=== PATIENT | female | born 1960 | race Caucasian/White ===

== ENCOUNTER 2019-02-16 13:46 | Emergency (ER) | payer MEDICAID ==
[~2019-02-16] VITALS: Ht 149.9 cm; Wt 81.6 kg
[2019-02-16 13:57] VITALS: BP_SYST 175
[2019-02-16] MEDS ORDERED: KETOROLAC TROMETHAMINE 60 MG/2 ML VIAL IM ONE (15:30)
[2019-02-16 15:53] VITALS: BP_SYST 175
== END 2019-02-16 15:53 | disposition home or self-care (01) ==
LOC: SED 13:46
DX: M25.562 Pain in left knee (principal); R03.0 Elevated blood-pressure reading, without diagnosis of hypertension; F17.210 Nicotine dependence, cigarettes, uncomplicated
CPT/HCPCS: 73564; 96372; 99283; J1885

== ENCOUNTER 2019-07-09 07:28 | Emergency (ER) | payer MEDICAID ==
[~2019-07-09] VITALS: Ht 149.9 cm; Wt 81.6 kg
--- NOTE | 2019-07-09 07:38 | NUR ---
Pt ambulated to bed 6
[2019-07-09 07:42] VITALS: BP_SYST 152
--- NOTE | 2019-07-09 07:44 | NUR ---
ER Dr. Fernandez at bedside examining patient.
--- NOTE | 2019-07-09 07:57 | NUR ---
ER at bedside examining patient.
--- NOTE | 2019-07-09 08:05 | NUR ---
Pt presents to ER with c/o bilateral eye swelling. Pt A&Ox4. Pt states on Tuesday afternoon, her face started to itch with redness. Pt states that last night her left eye began to get swollen. Pt states that this morning her right eye began to swell up. Pt states headache with pain 5/10. Pt states no known allergies, no fever, no vomiting, ad no nausea. 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 Will continue to monitor.
--- NOTE | 2019-07-09 08:32 | NUR ---
Patient given written and verbal discharge instructions and verbalizes understanding. ER MD discussed with patient the results and treatment provided. Patient in stable condition. ID arm band removed. Rx of Prednisone, Klonopin, Atarax given. Patient educated on pain management and to follow up with PMD. Pain Scale 0/10. Opportunity for questions provided and answered. Medication side effect fact sheet provided.
[2019-07-09 08:34] VITALS: BP_SYST 152
== END 2019-07-09 08:34 | disposition home or self-care (01) ==
LOC: SED 07:28
DX: L50.9 Urticaria, unspecified (principal)
CPT/HCPCS: 99283